=== PATIENT | male | born 1980 | race Caucasian/White ===

== ENCOUNTER 2016-05-22 11:43 | Emergency (ER) | payer MEDICAID, OTHER | END 2016-05-22 15:10 | disposition home or self-care (01) | LOC: ER 11:43 | DX: Z00.00 Encounter for general adult medical examination without abnormal findings (principal); S09.90XA Unspecified injury of head, initial encounter; F12.10 Cannabis abuse, uncomplicated; F19.10 Other psychoactive substance abuse, uncomplicated | CPT/HCPCS: 36415; 80053; 80307; 80320; 80329; 81001; 84439; 84443; 85025 ==